=== PATIENT | female | born 1965 | race Caucasian/White ===

== ENCOUNTER 2020-01-29 06:32 | Emergency (ER) | payer OTHER ==
--- NOTE | 2020-01-29 07:14 | ERPHSYRPT ---
- History of Present Illness Source: patient Exam Limitations: no limitations Hx Tetanus, Diphtheria Vaccination/Date Given: Yes Hx Influenza Vaccination/Date Given: Yes Hx Pneumococcal Vaccination/Date Given: No <DIANNA ANAND - Last Filed: 01/29/20 07:30> <WILDER OKEEFE - Last Filed: 01/29/20 12:10> - History of Present Illness Time Seen by Provider: 01/29/20 06:50 Physician History: For the past 70 minutes pt has had decreased sensation of her right upper & lower extremities and right facial cheek. Pt denies chest pain, shortness of air, fever, nausea, vomiting. (DIANNA ANAND) Allergies/Adverse Reactions: Penicillins Allergy (Mild, Verified 01/29/20 06:33) Hives - Review of Systems Constitutional: No Fever Respiratory: No Dyspnea Cardiac: No Chest Pain Abdominal/Gastrointestinal: No Nausea, No Vomiting Neurological: Sensory Changes (decreased sensation of right upper & lower extremities & right facial cheek for the past 70 minutes.) All Other Systems: Reviewed and Negative <DIANNA ANAND - Last Filed: 01/29/20 07:30> - Past Medical History Pertinent Past Medical History: Yes Cardiac History: Hypertension - Past Surgical History Past Surgical History: Yes Other Surgical History: t/a - Social History Smoking Status: Current every day smoker How long have you smoked: YRS Exposure to second hand smoke: Yes Drug Use: none Patient Lives Alone: No <DIANNA ANAND - Last Filed: 01/29/20 07:30> - Anisa Coma Scale Best Eye Response (Anisa): (4) open spontaneously Best Verbal Response (Anisa): (5) oriented Best Motor Response (Anisa): (6) obeys commands Anisa Total: 15 - Physical Exam General Appearance: alert Eye Exam: bilateral eye: PERRL, EOMI Ears, Nose, Throat Exam: TMs normal, pharyngeal erythema (mild) Neck Exam: normal inspection Respiratory: wheezing (mild diffuse expiratory wheezing) Cardiovascular: normal heart sounds Gastrointestinal: normal bowel sounds Back Exam: other (fair rom) Extremity Exam: normal range of motion Peripheral Pulses: dorsalis-pedis (R): 2+, dorsalis-pedis (L): 2+ Mental Status: alert, oriented x 3, 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 Exam: normal hearing, normal speech, PERRL, tongue midline Motor/Sensory: no motor deficit, negative Babinski's sign, No no sensory deficit (decreased sensation of right hand & right foot & right facial cheek.) Skin Exam: warm, dry SpO2 Interpretation: normal SpO2: 98 O2 Delivery: Room Air <DIANNA ANAND - Last Filed: 01/29/20 07:30> - Nursing Vital Signs Nursing Vital Signs: Initial Vital Signs Temperature 97.8 F 01/29/20 06:32 Pulse Rate 103 H 01/29/20 06:32 Respiratory Rate 18 01/29/20 06:32 Blood Pressure 210/128 01/29/20 06:32 O2 Sat by Pulse Oximetry 98 01/29/20 06:32 Pain Scale Pain Intensity 0 - Course EKG Interpreted by Me: RATE (90), Sinus Rhythm, Left Handley Deviation, NORMAL INTERVALS, Other (LAFB) <DIANNA ANAND - Last Filed: 01/29/20 07:30> Ordered Tests: Active Orders 24 hr Category Date Time Status EKG-ER Only STAT Care 01/29/20 07:17 Active IV Insertion STAT Care 01/29/20 07:17 Active CHEST 1 VIEW (PORTABLE) Stat Exams 01/29/20 07:18 Taken CHEST 1 VIEW (PORTABLE) Stat Exams 01/29/20 11:[address] ANGIOGRAPHY NECK [CT] Stat Exams 01/29/20 09:04 Taken CTA HEAD W AND/OR WO CONTRAST [CT] Stat Exams 01/29/20 09:04 Taken HEAD WITHOUT CONTRAST [CT] Stat Exams 01/29/20 07:04 Taken CBC W DIFF Stat Lab 01/29/20 07:40 Completed CMP Stat Lab 01/29/20 07:40 Completed MAGNESIUM Stat Lab 01/29/20 07:40 Completed [place] Screen Stat Lab 01/29/20 07:40 Completed TROPONIN Q3H Lab 01/29/20 07:40 Completed TROPONIN Q3H Lab 01/29/20 10:45 Completed TROPONIN Q3H Lab 01/29/20 13:30 Ordered TROPONIN Q3H Lab 01/29/20 16:30 Ordered TROPONIN Q3H Lab 01/29/20 19:30 Ordered Medication Summary Generic Name Dose Route Start Last Admin Trade Name Freq PRN Reason Stop Dose Admin Sodium Chloride 1,000 mls @ 100 mls/hr 01/29/20 07:30 01/29/20 08:12 Sodium Chloride 0.9% 1000 Ml IV 02/28/20 07:29 100 mls/hr .Q10H AYO Administration Discontinued Medications Generic Name Dose Route Start Last Admin Trade Name All PRN Reason Stop Dose Admin Aspirin 81 mg 01/29/20 09:04 01/29/20 09:21 Baby Aspirin 81 Mg Chew PO 01/29/20 09:05 81 mg STAT ONE Administration Aspirin Confirm 01/29/20 09:17 Baby Aspirin 81 Mg Chew Administered 01/29/20 09:18 Dose 81 mg .ROUTE .STK-MED ONE Aspirin 243 mg 01/29/20 11:34 01/29/20 11:38 Baby Aspirin 81 Mg Chew PO 01/29/20 11:35 243 mg STAT ONE Administration Clopidogrel Bisulfate 300 mg 01/29/20 09:04 01/29/20 09:19 Plavix 75 Mg Tablet PO 01/29/20 09:05 300 mg STAT ONE Administration Clopidogrel Bisulfate Confirm 01/29/20 09:17 Plavix 75 Mg Tablet Administered 01/29/20 09:18 Dose 300 mg .ROUTE .STK-MED ONE Nitroglycerin 0.4 mg 01/29/20 07:23 01/29/20 08:11 Nitrostat 0.4 Mg (Ed) SL 01/29/20 07:24 0.4 mg STAT ONE Administration Lab/Rad Data: Laboratory Result Diagrams 01/29/20 07:40 01/29/20 07:40 Laboratory Results 01/29/20 01/29/20 01/29/20 Range/Units 10:45 07:40 07:40 WBC (4.0-10.5) K/mm3 RBC (4.1-5.4) M/mm3 Hgb (12.0-16.0) gm/dl Hct (35-47) % MCV (78-100) fl MCH (26-32) pg MCHC (32-36) g/dl RDW (11.5-14.0) % Plt Count (150-450) K/mm3 MPV (7.5-11.0) fl Gran % (36.0-66.0) % Eos # (Auto) (0-0.5) Absolute Lymphs (auto) (1.0-4.6) Absolute Monos (auto) (0.0-1.3) Lymphocytes % (24.0-44.0) % Monocytes % (0.0-12.0) % Eosinophils % (0.00-5.0) % Basophils % (0.0-0.4) % Absolute Granulocytes (1.4-6.9) Basophils # (0-0.4) Sodium (137-145) mmol/L Potassium (3.5-5.1) mmol/L Chloride (98-107) mmol/L Carbon Dioxide (22-30) mmol/L Anion Gap (5-15) MEQ/L BUN (7-17) mg/dL Creatinine (0.52-1.04) mg/dL Estimated GFR ML/MIN Glucose (74-106) mg/dL Calcium (8.4-10.2) mg/dL Magnesium (1.6-2.3) mg/dL Total Bilirubin (0.2-1.3) mg/dL AST (14-36) U/L ALT (0-35) U/L Alkaline Phosphatase (38-126) U/L Troponin I < 0.012 < 0.012 (0.000-0.034) ng/mL Serum Total Protein (6.3-8.2) g/dL Albumin (3.5-5.0) g/dL Monoscreen NEGATIVE (Negative) Group A Strep Antibody (NEGATIVE) 01/29/20 01/29/20 01/29/20 Range/Units 07:40 07:40 07:40 WBC 8.1 (4.0-10.5) K/mm3 RBC 5.52 H (4.1-5.4) M/mm3 Hgb 16.8 H (12.0-16.0) gm/dl Hct 51.0 H (35-47) % MCV 92.4 (78-100) fl MCH 30.4 (26-32) pg MCHC 32.9 (32-36) g/dl RDW 14.3 H (11.5-14.0) % Plt Count 196 (150-450) K/mm3 MPV 10.7 (7.5-11.0) fl Gran % 65.4 (36.0-66.0) % Eos # (Auto) 0.29 (0-0.5) Absolute Lymphs (auto) 2.01 (1.0-4.6) Absolute Monos (auto) 0.45 (0.0-1.3) Lymphocytes % 24.8 (24.0-44.0) % Monocytes % 5.6 (0.0-12.0) % Eosinophils % 3.6 (0.00-5.0) % Basophils % 0.6 (0.0-0.4) % Absolute Granulocytes 5.30 (1.4-6.9) Basophils # 0.05 (0-0.4) Sodium 137 (137-145) mmol/L Potassium 4.2 (3.5-5.1) mmol/L Chloride 106 (98-107) mmol/L Carbon Dioxide 27 (22-30) mmol/L Anion Gap 9.1 (5-15) MEQ/L BUN 15 (7-17) mg/dL Creatinine 0.71 (0.52-1.04) mg/dL Estimated GFR > 60.0 ML/MIN Glucose 140 H (74-106) mg/dL Calcium 9.0 (8.4-10.2) mg/dL Magnesium 2.2 (1.6-2.3) mg/dL Total Bilirubin 0.60 (0.2-1.3) mg/dL AST 25 (14-36) U/L ALT 31 (0-35) U/L Alkaline Phosphatase 87 (38-126) U/L Troponin I (0.000-0.034) ng/mL Serum Total Protein 7.2 (6.3-8.2) g/dL Albumin 4.2 (3.5-5.0) g/dL Monoscreen (Negative) Group A Strep Antibody NOT DETECTED (NEGATIVE) - Progress Progress: unchanged, re-examined Discussed with : Other Counseled pt/family regarding: lab results, diagnosis, rad results <WILDER OKEEFE - Last Filed: 01/29/20 12:10> - Progress Progress Note: 01/29/20 11:40 55 years old is checked out to me at shift change from Dr. Anand with pending neuro evaluation. Patient presented with almost 1-1/2-hour history of right- sided numbness with minimal weakness/difficulty ambulation. On my exam I did not appreciate any obvious motor weakness but does have some sensory loss on the right. CT head is negative, EKG did not show any arrhythmias. Grossly unremarkable chemistries. Specialist research contracts supervisor tele neuro consult recommended aspirin and Plavix as patient is not a candidate for TPA. Recommended obtaining CTA head neck which are negative. Patient is recommended admission for further work-up, patient does not want to stay here and wants to go to [facility]. I have called [facility] transfer line . 01/29/20 11:54 I have discussed with [facility] neuro hospitalist Dr. Rashad Herring, are reviewed patient presentation, objective findings, work-up, recommended discussing with the hospitalist and will let us know about status of acceptance. 01/29/20 12:10 I have discussed with Dr. Ramon hospitalist [facility] and patient is accepted for transfer. (WILDER OKEEFE) <DIANNA ANAND - Last Filed: 01/29/20 07:30> - Departure Departure Disposition: Transfer Critical Care Time: No <WILDER OKEEFE - Last Filed: 01/29/20 12:10> - Departure Clinical Impression: Stroke Qualifiers: CVA mechanism: unspecified Qualified Code(s): I63.9 - Cerebral infarction, unspecified Condition: Stable [facility] -
[2020-01-29] MEDS ORDERED: Nitrostat 0.4 MG (ED) SL ONE (07:23)
[2020-01-29] MEDS ORDERED: Sodium Chloride 0.9% 1000 ML 1,000 ML IV SCH (07:30)
[2020-01-29 07:52] LABS: BASOPHIL % 0.6 % (0.0-0.4); Basophil (Absolute #) 0.05 (0-0.4); Eosinophil % 3.6 % (0.00-5.0); Eosinophil (Absolute #) 0.29 (0-0.5); Hemoglobin 16.8 gm/dl (12.0-16.0); Lymphocyte (Absolute #) 2.01 (1.0-4.6); Lymphocytes % 24.8 % (24.0-44.0); Mean Cell Volume 92.4 fl (78-100); Mean Corpuscular Hemoglobin 30.4 pg (26-32); Mean Corpuscular Hgb Concent. 32.9 g/dl (32-36); Mean Platelet Volume 10.7 fl (7.5-11.0); Monocyte (Absolute #) 0.45 (0.0-1.3); Monocytes % 5.6 % (0.0-12.0); Neutrophil % 65.4 % (36.0-66.0); Platelet Count 196 K/mm3 (150-450); Red Blood Count 5.52 M/mm3 (4.1-5.4); Red Cell Distribution Width 14.3 % (11.5-14.0); White Blood Count 8.1 K/mm3 (4.0-10.5)
[2020-01-29 08:04] LABS: ALBUMIN 4.2 g/dL (3.5-5.0); ALKALINE PHOSPHATASE 87 U/L (38-126); ANION GAP 9.1 MEQ/L (5-15); BLOOD UREA NITROGEN 15 mg/dL (7-17); CHLORIDE 106 mmol/L (98-107); Carbon Dioxide 27 mmol/L (22-30); Creatinine 1 0.71 mg/dL (0.52-1.04); EST GLOMERULAR FILTRATION RATE > 60.0 ML/MIN; Glucose 140 mg/dL (74-106); MAGNESIUM 2.2 mg/dL (1.6-2.3); Potassium 4.2 mmol/L (3.5-5.1); SGOT/AST 25 U/L (14-36); SGPT/ALT 31 U/L (0-35); SODIUM 137 mmol/L (137-145); Total Protein 7.2 g/dL (6.3-8.2)
[2020-01-29] MEDS ORDERED: Sodium Chloride 0.9% 1000 ML 1,000 ML ONE (08:06)
[2020-01-29] MEDS ORDERED: BABY ASPIRIN 81 MG CHEW PO ONE ×2 (09:04→11:34)
[2020-01-29] MEDS ORDERED: PLAVIX 75 MG Tablet PO ONE (09:04)
[2020-01-29] MEDS ORDERED: BABY ASPIRIN 81 MG CHEW ONE (09:17)
[2020-01-29] MEDS ORDERED: PLAVIX 75 MG Tablet ONE (09:17)
[2020-01-29 11:23] VITALS: PULSE 80
[2020-01-29 12:16] VITALS: BP 180/115; O2SAT 95
[2020-01-29] MEDS ORDERED: APRESOLINE 20 MG/ML INJ ONE (13:07)
--- NOTE | 2020-01-29 19:34 | XRAY ---
Indication: Right-sided weakness and tingling. Multiple contiguous axial images obtained through the head without contrast. Comparison: None Age-appropriate global atrophy and minimal periventricular degenerative micro-ischemia bilaterally. No acute intracranial hemorrhage, abnormal extra-axial fluid collection, or mass effect. Fourth ventricle is midline without hydrocephalus. Garcia-white matter differentiation preserved. Bony calvarium intact. Visualized greatest sinuses and mastoid air cells are clear. Impression: Atrophy and degenerative micro-ischemia within normal limits for patient's age. No acute intracranial abnormalities. Comment: Preliminary interpretation was made by [facility]. No critical discrepancy.
--- NOTE | 2020-01-29 19:39 | XRAY ---
Indication: Right sided weakness and tingling. Comparison: None Portable chest demonstrates normal heart, lungs, and bony thorax with incidental hilar calcified nodes.
--- NOTE | 2020-01-29 19:40 | XRAY ---
Indication: Right-sided weakness and tingling. Conventional contrast enhanced CTA neck performed using 100 cc Isovue-370 contrast. Two-dimensional sagittal and coronal reformatted images obtained. Additional 3-dimensional reformatted images obtained using a separate workstation. Comparison: None Aortic arch normal in course and caliber with normal branching right brachiocephalic, left common carotid, and left subclavian arteries. Minimal calcifications of the aortic arch, origin left subclavian artery, and lesser degree origin left common carotid artery without critical stenosis/obstruction. Examination of the right carotid circulation demonstrates widely patent common carotid artery. Mild calcifications at the level of the bulb producing 20-30% stenosis. Remaining internal and external carotid arteries are normal in CTA appearance. Examination of the left carotid circulation demonstrates widely patent common carotid artery. Minimal calcifications at the level of the bulb and proximal internal carotid artery producing less than 20% stenosis. Remaining external carotid artery normal in CTA appearance. Vertebral arteries are bilaterally patent with left slightly larger in caliber. Soft tissues demonstrates a few subcentimeter cervical nodes bilaterally. No pathologic lymphadenopathy. Thyroid gland enhances homogeneously. Supra and infraglottic airway widely patent. Cervical spine intact with mild C5-C7 degenerative changes. Lung apices are clear. Impression: Minimal scattered carotid calcifications bilaterally as detailed. Negative critical stenosis/obstruction. Comment: Preliminary interpretation was made by [facility]. No critical discrepancy.
--- NOTE | 2020-01-29 19:42 | XRAY ---
Indication: Right-sided weakness and tingling. Conventional contrast enhanced CTA head performed using 100 cc Isovue-370 contrast. Two-dimensional sagittal and coronal reformatted images obtained. Additional 3-dimensional reformatted images obtained using a separate workstation. Comparison: None Distal internal carotid arteries are bilaterally symmetric with minimal calcifications parasellar segments. Negative critical stenosis, obstruction, or AV malformation. Normal carotid terminus with normal branching A1 and M1 segments bilaterally. More distal anterior cerebral, middle cerebral, injury communicating, and posterior communicating arteries are normal in CT appearance. Basilar artery is normal in course and caliber with normal branching posterior cerebral and superior cerebellar arteries bilaterally. Remaining whole brain is negative for abnormal enhancing intra-or extra-axial mass. CTA neck reported separately. Impression: Minimal internal carotid artery calcifications bilaterally without critical stenosis/obstruction. Remaining CTA head is negative. Comment: Preliminary interpretation was made by [facility]. No critical discrepancy.
== END 2020-01-29 13:38 | disposition short-term general hospital (02) ==
LOC: ED 06:32
DX: I63.9 Cerebral infarction, unspecified (principal); R20.8 Other disturbances of skin sensation; Z86.79 Personal history of other diseases of the circulatory system
CPT/HCPCS: 36000; 36415; 70450; 70496; 70498; 71045; 80053; 83735; 84484; 85025; 86308; 87651; 93005; 96360; 99285; J0360; A9270-GY

== ENCOUNTER 2023-11-19 13:04 | Observation (INO) | payer OTHER ==
[2023-11-19] MEDS ORDERED: Sensorcaine 0.25% 10 ML ONE (14:47)
--- NOTE | 2023-11-19 14:54 | PCM.HP ---
History of Present Illness - Chief Complaint Chief Complaint: appendicitis Date: 11/19/23 History of Present Illness: is a 58 year old female with PMHX of TIA Stroke-2021(on Plavix), HTN, Type II DM, polycythemia, and hyperlipidemia. She was direct admitted by LEANNA Blue for acute appendicitis. WBC 20. CT abd/ Pelvis shows; Appendicolith with CT features favoring acute appendicitis. 1 cm indeterminant right lower lobe noncalcified nodule. Chronic findings including arteriosclerotic disease and chronic bony findings. She last ate at yesterday and a sip of water at 10 AM. Antibiotocs and IVF started per GS. She is c/o RUQ, RLQ pain with palpation. Pain increases with coughing and sitting up. Sitting still makes it better. Abd pain started at 4:20 this AM. She denies CP, SOB, N/V/D, fever. - Review of Systems Constitutional: No Fever, No Chills Eyes: No Symptoms Ears, Nose, & Throat: No Symptoms Respiratory: No Cough, No Short Of Breath Cardiac: No Chest Pain, No Edema, No Syncope Abdominal/Gastrointestinal: Abdominal Pain, No Nausea, No Vomiting, No Diarrhea Genitourinary Symptoms: No Dysuria Musculoskeletal: No Back Pain, No Neck Pain Skin: No Rash Neurological: No Dizziness, No Focal Weakness, No Sensory Changes Psychological: No Symptoms Endocrine: No Symptoms Hematologic/Lymphatic: No Symptoms Immunological/Allergic: No Symptoms Medications & Allergies Home Medications: Home Medication List Amlodipine Besylate/Benazepril [Amlodipine-Benazepril 5-10 mg] 1 each PO DAILY 11/19/23 [History Confirmed 11/19/23] Aspirin EC 81 mg [Ecotrin 81 mg] 81 mg PO DAILY 11/19/23 [History Confirmed 11/19/23] Atorvastatin Calcium 40 mg PO DAILY 11/19/23 [History Confirmed 11/19/23] Calcium Carbonate/Vitamin D3 [Calcium 1,000 + D3 Caplet] 1 tablet PO DAILY 11/19/23 [History Confirmed 11/19/23] Clopidogrel Bisulfate [Clopidogrel] 75 mg PO DAILY 11/19/23 [History Confirmed 11/19/23] Metoprolol Succinate 50 mg PO DAILY 11/19/23 [History Confirmed 11/19/23] Multivitamin [Multi-Vitamin Daily] 1 each PO DAILY 11/19/23 [History Confirmed 11/19/23] Oakman-3 Fatty Acids/Fish Oil [Fish Oil 1,000 mg Capsule] 1,000 mg PO DAILY 11/19/23 [History Confirmed 11/19/23] Allergies/Adverse Reactions: Allergies Allergy/AdvReac Type Severity Reaction Status Date / Time Penicillins Allergy Mild Hives Verified 11/19/23 13:16 - Past Medical History Past Medical History: Yes Neurological History: Stroke ENT History: No Pertinent History Cardiac History: Hypertension Respiratory History: No Pertinent History Musculoskelatal History: No Pertinent History GI Medical History: No Pertinent History History: No Pertinent History Pyscho-Social History: No Pertinent History Reproductive Disorders: No Pertinent History Comment: Stroke January 2020 - Past Surgical History Past Surgical History: Yes Neuro Surgical History: No Pertinent History Cardiac History: No Pertinent History Respiratory Surgery: No Pertinent History GI Surgical History: No Pertinent History Genitourinary Surgical Hx: No Pertinent History Musculskeletal Surgical Hx: No Pertinent History Female Surgical History: No Pertinent History Other Surgical History: t/a - Social History Smoking Status: Current every day smoker How long have you smoked: YRS Exposure to second hand smoke: Yes Alcohol: None Drug Use: none - Physical Exam General Appearance: no apparent distress, alert Neurologic Exam: alert, oriented x 3, cooperative, normal mood/affect, nml cerebellar function, nml station & gait, sensation nml, No motor deficits Eye Exam: PERRL/EOMI, eyes nml inspection Ears, Nose, Throat Exam: normal ENT inspection, TMs normal, pharynx normal, moist mucous membranes Neck Exam: normal inspection, non-tender, supple, full range of motion Respiratory Exam: normal breath sounds, lungs clear, No respiratory distress Cardiovascular Exam: regular rate/rhythm, normal heart sounds, normal peripheral pulses Gastrointestinal/Abdomen Exam: soft, normal bowel sounds, tenderness (RUQ, RLQ with palpation), guarding, No mass Back Exam: normal inspection, normal range of motion, No CVA tenderness, No ve rtebral tenderness Extremity Exam: normal inspection, normal range of motion, pelvis stable Skin Exam: normal color, warm, dry, No rash Lymphatic Exam: No adenopathy Assessment/Plan (1) Appendicitis Current Visit: Yes Status: Acute Qualifiers: Appendicitis type: acute appendicitis Assessment & Plan: - GS consult - Antibiotics and IVF per GS - NPO - PT/INR, T&C- pending Code(s): K37 - UNSPECIFIED APPENDICITIS (2) HTN (hypertension) Current Visit: Yes Status: Chronic Assessment & Plan: - Bp stable continue home meds Code(s): I10 - ESSENTIAL (PRIMARY) HYPERTENSION (3) Hyperlipidemia Current Visit: Yes Status: Chronic Assessment & Plan: - continue statin Code(s): E78.5 - HYPERLIPIDEMIA, UNSPECIFIED (4) History of stroke Current Visit: Yes Status: Chronic Assessment & Plan: - Hold Plavix for surgery - no deficits Code(s): Z86.73 - PRSNL HX OF TIA (TIA), AND CEREB INFRC W/O RESID DEFICITS (5) Polycythemia Current Visit: Yes Status: Chronic Assessment & Plan: - chronic - Hgb 16- monitor Code(s): D75.1 - SECONDARY POLYCYTHEMIA (6) BMI 36.0-36.9,adult Current Visit: Yes Status: Acute Assessment & Plan: - advised ADA diet and exercise control VTE:SCD Next of KIN: Andrews Deleon [phone] Code status: Full D/C plan: tomorrow? Code(s): Z68.36 - BODY MASS INDEX [BMI] 36.0-36.9, ADULT
[2023-11-19 15:12] LABS: INR 0.93 (0.8-3.0); PROTIME 10.2 SECONDS (9.4-12.5)
[2023-11-19 15:37] LABS: ABO TYPING A; Antibody Screen NEGATIVE (NEGATIVE); RH TYPING NEGATIVE
[2023-11-19] MEDS: Lactated Ringers 1,000 ML IV SCH (15:40)
[2023-11-19] MEDS: Levofloxacin 500MG/100ML D5W 500 MG/100 ML BAG IV SCH (15:40)
[2023-11-19] MEDS: CLINDAMYCIN-D5W 900 MG/50 ML*** 900 MG/50 ML BAG IV SCH (15:41)
[2023-11-19] MEDS ORDERED: Xylocaine-Mpf 2% 5 Ml Vial ONE (16:02)
[2023-11-19] MEDS ORDERED: DIPRIVAN 200 MG/20 ML IV ONE (16:02)
[2023-11-19] MEDS ORDERED: ROCURONIUM BROMIDE IV ONE (16:02)
[2023-11-19] MEDS ORDERED: BRIDION 200MG/2ML IV ONE (16:02)
[2023-11-19] MEDS ORDERED: TORAdol 30 mg Injection ONE (16:02)
[2023-11-19] MEDS ORDERED: Zofran 4 MG/2 ML VIAL ONE (16:02)
[2023-11-19] MEDS ORDERED: Decadron 4 MG INJ ONE (16:02)
[2023-11-19] MEDS ORDERED: SUBLIMAZE 100 MCG/2 ML ONE (16:02)
[2023-11-19] MEDS ORDERED: OFIRMEV 100 ML IV ONE (16:14)
[2023-11-19] MEDS ORDERED: MORPHINE SULFATE 4 MG INJ IV PRN (18:21)
[2023-11-19] MEDS ORDERED: Zofran 4 MG/2 ML VIAL IV PRN (18:24)
[2023-11-19] MEDS ORDERED: Levofloxacin 500MG/100ML D5W 500 MG/100 ML BAG IV SCH (19:00)
[2023-11-19] MEDS: NORCO 5/325 MG PO PRN (21:16)
[2023-11-19] MEDS: FLAGYL 500 MG IVPB 500 MG/100 ML BAG IV SCH (21:16)
[2023-11-19] MEDS ORDERED: FLAGYL 500 MG IVPB 500 MG/100 ML BAG IV SCH (23:00)
[2023-11-20] MEDS ORDERED: Levofloxacin 500MG/100ML D5W 500 MG/100 ML BAG IV SCH (04:00)
[2023-11-20] MEDS: Levofloxacin 500MG/100ML D5W 500 MG/100 ML BAG IV SCH (04:32)
[2023-11-20 05:45] LABS: Hematocrit 46.3 % (34.1-44.9); Hemoglobin 15.2 g/dL (11.2-15.7); Mean Cell Volume 91.9 fL (79.4-94.8); Mean Corpuscular Hemoglobin 30.2 pg (25.6-32.2); Mean Corpuscular Hgb Concent. 32.8 g/dL (32.2-35.5); Mean Platelet Volume 10.4 fL (9.4-12.3); Platelet Count 193 x10^3/uL (182-369); Red Blood Count 5.04 x10^6/uL (3.93-5.22); Red Cell Distribution Width 13.1 % (11.7-14.4); White Blood Count 16.7 x10^3/uL (3.98-10.04)
[2023-11-20 06:03] LABS: ALBUMIN 4.1 g/dL (3.5-5.0); ANION GAP 14.9 MEQ/L (5-15); BILIRUBIN,TOTAL 0.9 mg/dL (0.2-1.3); Calcium 9.3 mg/dL (8.4-10.2); Creatinine 1 1.01 mg/dL (0.52-1.04); EST GLOMERULAR FILTRATION RATE 64.1 ML/MIN; Potassium 4.3 mmol/L (3.5-5.1); Total Protein 6.8 g/dL (6.3-8.2)
--- NOTE | 2023-11-20 10:08 | HP ---
HISTORY AND PHYSICAL HISTORY OF PRESENT ILLNESS: Patient is a 58-year-old who had some right lower quadrant pain since about 4 a.m. She had persistent pain so she was sent for CT scan, which indicated findings suspicious for acute appendicitis. White count was 20,000 sounds like. Liver function tests unremarkable. PAST MEDICAL HISTORY: She had stroke in the past, been on some Plavix and aspirin apparently. She had elevated hemoglobin A1c but had been on some Ozempic and come down to the 6 range apparently. She has had history of CVA, hypertension, sleep apnea, diabetes, history of some spinal stenosis, and radiculopathy in the past. She has had some skin cancer in the past. PAST SURGICAL HISTORY: Tonsillectomy and adenoidectomy. She denied having prior abdominal surgery in the past. She did have a colonoscopy back in 2018. FAMILY HISTORY: Diabetes, renal insufficiency. SOCIAL HISTORY: She had history of having been a smoker in the past. MEDICATIONS: Previously include amlodipine, aspirin, atorvastatin, calcium carbonate, Centrum, clopidogrel, Krill oil, metoprolol, as well as Ozempic and Protonix, Super D Complex. REVIEW OF SYSTEMS: Twelve systems reviewed. Other systems negative or noncontributory as above and per preadmission questionnaire. She has had hyperlipidemia as well. PHYSICAL EXAMINATION: GENERAL: Height 5 feet 4 inches. No acute distress. HEENT: Sclerae nonicteric. Extraocular movements intact. Oral: Mucous membranes moist. NECK: No JVD. CHEST: Equal excursion, nonlabored breathing. CARDIOVASCULAR: Regular rate and rhythm. ABDOMEN: Soft. Some tenderness in the right upper quadrant. No peritoneal signs. EXTREMITIES: No cyanosis. No significant edema. NEUROLOGIC: Alert and oriented, moving all extremities symmetrically. PSYCHIATRIC: Appropriate mood and affect. IMPRESSION: Acute right lower quadrant pain. CT scan suspicious for appendicitis. History and physical exam, CT findings suggestive for acute appendicitis. The patient will undergo laparoscopic appendectomy, possible open. Risks were explained in detail including bleeding, infection, risk of trocar injury and hernia, risk of bowel or bladder, blood loss, and risk of subsequent intra-abdominal abscess or fistula requiring percutaneous or open drainage at a later date, general risks of anesthesia, DVT, PE, pneumonia, perioperative risk of ileus or obstruction, risk of ongoing infection, possible need for open procedure but not limited to. She understands and accepts the above. We will proceed with laparoscopic appendectomy and possible open when OR time available.
--- NOTE | 2023-11-20 10:10 | OP ---
SURGERY DATE/TIME: 11/19/2023 2836 - 1610 PREOPERATIVE DIAGNOSIS: Acute right lower quadrant pain, suspicious for acute appendicitis. POSTOPERATIVE DIAGNOSIS: Acute suppurative ischemic appendicitis. PROCEDURE: Laparoscopic appendectomy. SURGEON: Rashad Tomlinson MD LAMP WIRER: Toma Treviño, Medical Student 3. ESTIMATED BLOOD LOSS: Minimal. INDICATIONS: As noted above. Risks and benefits explained in detail, but not limited to. Consent was obtained. DESCRIPTION OF PROCEDURE AND FINDINGS: The patient was taken to the operating room. General anesthesia was induced, prepped and draped in the usual sterile fashion. After official time-out, no disagreement in planned procedure, transverse incision made in the supraumbilical area. Fascia grasped and pulled up. Veress needle was inserted. Tested with saline. Pneumoperitoneum accomplished insufflating to an open pressure of 0 to 15. A 5 mm bladeless port and camera inserted without difficulty followed by lower midline 5 mm port and a right upper quadrant 12 mm port site. The appendix was noted to be acutely suppurative with some ischemia so will definitely want an appendectomy. LigaSure device was carefully used to create a at the base of the appendix. The mesoappendix was taken down, ligated with the use of the LigaSure device. The appendix was stapled at its base at the cecum and a viable portion with the EndoGIA stapler. Good hemostasis was noted. The appendix was placed in the provided sack, pulled through, slightly enlarging the 12 site with a clamp and the appendix and bag pulled free and passed off. This fascial defect was closed with puncture closure device with #1 Vicryl. Copious amount of irrigation accomplished in the right lower quadrant, pelvis and lateral lobe of the liver irrigated clear. Staple line was intact on the cecum. Mesoappendix was dry and having been sealed by the LigaSure device. At this point, pneumoperitoneum was decompressed. Again, the 12 fascial defect with puncture closure device and closed with #1 Vicryl. The wound was irrigated out. Skin incisions closed with 4-0 Vicryl. Marcaine 0.25% local injected along each skin incision and fascial defect. Patient tolerated the procedure well. There were no immediate complications. We will keep her on IV antibiotics overnight and we will see how she is doing tomorrow. Will possibly discharge in 1 day or 2 pending her white count.
--- NOTE | 2023-11-20 12:01 | PCM.DS ---
Discharge Summary Date of Admission: 11/19/23 13:04 Date of Discharge: 11/20/23 Admitting Physician: ERMA FLANAGAN MD Primary Care Provider: TASH AVENDAÑO [place] Allergies Allergies Penicillins Allergy (Mild, Verified 11/19/23 13:16) [facility] Summary - Hospital Course Hospital Course: 11/19/23 is a 58 year old female with PMHX of TIA Stroke-2021(on Plavix), HTN, Type II DM, polycythemia, and hyperlipidemia. She was direct admitted by LEANNA Blue for acute appendicitis. WBC 20. CT abd/ Pelvis shows; Appendicolith with CT features favoring acute appendicitis. 1 cm indeterminant right lower lobe noncalcified nodule. Chronic findings including arteriosclerotic disease and chronic bony findings. She last ate at yesterday and a sip of water at 10 AM. Antibiotocs and IVF started per GS. She is c/o RUQ, RLQ pain with palpation. Pain increases with coughing and sitting up. Sitting still makes it better. Abd pain started at 4:20 this AM. She denies CP, SOB, N/V/D, fever. 11/20/23 Pt sitting up in bed. She is POD #1 lap appy. She is having some RUQ pain with bending over. Post op wounds covered and no erythema. She feels she is ready to d/c. Per surgery ok to d/c. Pt to f/u OP with GS. Pt denies CP, SOB, N/V/D. - Vitals & Intake/Output Vital Signs: Vital Signs Temperature 97.8 F 11/20/23 08:00 Pulse Rate 64 11/20/23 08:00 Respiratory Rate 18 11/20/23 08:00 Blood Pressure 102/60 11/20/23 08:00 O2 Sat by Pulse Oximetry 94 L 11/20/23 08:00 Intake & Output: Intake & Output 11/17/23 11/18/23 11/19/23 11/20/23 11:59 11:59 11:59 11:59 Intake Total 659 Balance 659 Weight 95.37 kg - Lab Result Diagrams: 11/20/23 05:35 11/20/23 05:35 Lab Results-Last 24 Hrs: Lab Results-Last 24 Hours 11/19/23 11/19/23 11/20/23 Range/Units 14:41 14:41 05:35 WBC 16.7 H (3.98-10.04) x10^3/uL RBC 5.04 (3.93-5.22) x10^6/uL Hgb 15.2 (11.2-15.7) g/dL Hct 46.3 H (34.1-44.9) % MCV 91.9 (79.4-94.8) fL MCH 30.2 (25.6-32.2) pg MCHC 32.8 (32.2-35.5) g/dL RDW 13.1 (11.7-14.4) % Plt Count 193 (182-369) x10^3/uL MPV 10.4 (9.4-12.3) fL PT 10.2 (9.4-12.5) SECONDS INR 0.93 (0.8-3.0) Sodium (135-145) mmol/L Potassium (3.5-5.1) mmol/L Chloride (98-107) mmol/L Carbon Dioxide (22-30) mmol/L Anion Gap (5-15) MEQ/L BUN (7-17) mg/dL Creatinine (0.52-1.04) mg/dL Estimated GFR ML/MIN Glucose (74-106) mg/dL Calcium (8.4-10.2) mg/dL Total Bilirubin (0.2-1.3) mg/dL AST (14-36) U/L ALT (0-35) U/L Alkaline Phosphatase (38-126) U/L Serum Total Protein (6.3-8.2) g/dL Albumin (3.5-5.0) g/dL ABO Group A Rh Factor NEGATIVE Antibody Screen NEGATIVE (NEGATIVE) 11/20/23 Range/Units 05:35 WBC (3.98-10.04) x10^3/uL RBC (3.93-5.22) x10^6/uL Hgb (11.2-15.7) g/dL Hct (34.1-44.9) % MCV (79.4-94.8) fL MCH (25.6-32.2) pg MCHC (32.2-35.5) g/dL RDW (11.7-14.4) % Plt Count (182-369) x10^3/uL MPV (9.4-12.3) fL PT (9.4-12.5) SECONDS INR (0.8-3.0) Sodium 136 (135-145) mmol/L Potassium 4.3 (3.5-5.1) mmol/L Chloride 99 (98-107) mmol/L Carbon Dioxide 27 (22-30) mmol/L Anion Gap 14.9 (5-15) MEQ/L BUN 18 H (7-17) mg/dL Creatinine 1.01 (0.52-1.04) mg/dL Estimated GFR 64.1 ML/MIN Glucose 150 H (74-106) mg/dL Calcium 9.3 (8.4-10.2) mg/dL Total Bilirubin 0.90 (0.2-1.3) mg/dL AST 20 (14-36) U/L ALT 27 (0-35) U/L Alkaline Phosphatase 58 (38-126) U/L Serum Total Protein 6.8 (6.3-8.2) g/dL Albumin 4.1 (3.5-5.0) g/dL ABO Group Rh Factor Antibody Screen (NEGATIVE) Micro Results-Entire Visit: Accuchecks Date 11/19/23 - Procedures and Test Procedures and Tests throughout Hospitalization: Therapy Orders & Screens 11/19/23 16:29 EKG ROUTINE Comment: Diagnosis: appendicitis Discharge Exam General Appearance: no apparent distress, alert, obese Neurologic Exam: alert, oriented x 3, cooperative, normal mood/affect, nml cer ebellar function, sensation nml, No motor deficits Eye Exam: PERRL, EOMI, eyes nml inspection Ears, Nose, Throat Exam: normal ENT inspection, pharynx normal, moist mucous membranes Neck Exam: normal inspection, non-tender, supple, full range of motion Respiratory Exam: normal breath sounds, lungs clear, No respiratory distress Cardiovascular Exam: regular rate/rhythm, normal heart sounds Gastrointestinal/Abdomen Exam: soft, tenderness (RUQ), No mass Pelvic Exam: deferred Rectal Exam: deferred Back Exam: normal inspection, normal range of motion, No CVA tenderness, No v ertebral tenderness Extremity Exam: normal inspection, normal range of motion Skin Exam: normal color, warm, dry, other (insisions from lap appy - covered) Final Diagnosis/Problem List - Final Discharge Diagnosis/Problem (1) Appendicitis Current Visit: Yes Status: Acute Code(s): K37 - UNSPECIFIED APPENDICITIS (2) HTN (hypertension) Current Visit: Yes Status: Chronic Code(s): I10 - ESSENTIAL (PRIMARY) HYPERTENSION (3) Hyperlipidemia Current Visit: Yes Status: Chronic Code(s): E78.5 - HYPERLIPIDEMIA, UNSPECIFIED (4) History of stroke Current Visit: Yes Status: Chronic Code(s): Z86.73 - PRSNL HX OF TIA (TIA), AND CEREB INFRC W/O RESID DEFICITS (5) Polycythemia Current Visit: Yes Status: Chronic Code(s): D75.1 - SECONDARY POLYCYTHEMIA (6) BMI 36.0-36.9,adult Current Visit: Yes Status: Acute Assessment & Plan: 1) Appendicitis Current Visit: Yes Status: Acute Qualifiers: Appendicitis type: acute appendicitis Assessment & Plan: - GS consult - Antibiotics and IVF per GS - NPO - PT/INR, T&C- pending - narcotic pain meds 11/19 - POD #1 lap appy - ok to d/c per GS - OP Rx's wrote by GS Code(s): K37 - UNSPECIFIED APPENDICITIS (2) HTN (hypertension) Current Visit: Yes Status: Chronic Assessment & Plan: - Bp stable continue home meds Code(s): I10 - ESSENTIAL (PRIMARY) HYPERTENSION (3) Hyperlipidemia Current Visit: Yes Status: Chronic Assessment & Plan: - continue statin Code(s): E78.5 - HYPERLIPIDEMIA, UNSPECIFIED (4) History of stroke Current Visit: Yes Status: Chronic Assessment & Plan: - Hold Plavix for surgery - no deficits Code(s): Z86.73 - PRSNL HX OF TIA (TIA), AND CEREB INFRC W/O RESID DEFICITS (5) Polycythemia Current Visit: Yes Status: Chronic Assessment & Plan: - chronic - Hgb 16- monitor 11/19 - Hgb 15.2 Code(s): D75.1 - SECONDARY POLYCYTHEMIA (6) BMI 36.0-36.9,adult Current Visit: Yes Status: Acute Assessment & Plan: - advised ADA diet and exercise control Code(s): Z68.36 - BODY MASS INDEX [BMI] 36.0-36.9, ADULT - Discharge Discharge Date: 11/20/23 Disposition: Home, Self-Care Condition: Stable Prescriptions: Continue Marina-3 Fatty Acids/Fish Oil [Fish Oil 1,000 mg Capsule] 1,000 mg PO DAILY Amlodipine Besylate/Benazepril [Amlodipine-Benazepril 5-10 mg] 1 each PO DAILY Clopidogrel Bisulfate [Clopidogrel] 75 mg PO DAILY Atorvastatin Calcium 40 mg PO DAILY Metoprolol Succinate 50 mg PO DAILY Aspirin EC 81 mg [Ecotrin 81 mg] 81 mg PO DAILY Multivitamin [Multi-Vitamin Daily] 1 each PO DAILY Calcium Carbonate/Vitamin D3 [Calcium 1,000 + D3 Caplet] 1 tablet PO DAILY Instructions: Appendectomy - Discharge instructions Additional Instructions: May return to work after seen by physician at F/U appointment on 11/25/23. Do not lift more than 10-15lbs until after F/U appointment on 11/25/23. Take prescribed antibiotics and pain medications as prescribed. Follow up with: TASH AVENDAÑO MD [Primary Care Provider] - 12/02/23 10:45 am NAVEED JOE [COURTESY STAFF] - 11/25/23 10:30 am ([facility]) Forms: Work/School Release Form
[2023-11-20 13:14] VITALS: BP 115/62; PULSE 73; RESP 20; TEMP 97.3; O2SAT 93
[2023-11-21] MEDS ORDERED: Levofloxacin 500MG/100ML D5W 500 MG/100 ML BAG IV SCH (06:00)
== END 2023-11-20 12:43 | disposition home or self-care (01) ==
LOC: MED SURG 13:04
PROVIDERS: ADMIT Internal Medicine; ATTEND Internal Medicine
DX: K37 Unspecified appendicitis (principal); I10 Essential (primary) hypertension; E11.9 Type 2 diabetes mellitus without complications; E78.5 Hyperlipidemia, unspecified; D75.1 Secondary polycythemia; Z86.73 Personal history of transient ischemic attack (TIA), and cerebral infarction without residual deficits; Z79.01 Long term (current) use of anticoagulants; Z79.899 Other long term (current) drug therapy; Z68.36 Body mass index [BMI] 36.0-36.9, adult
CPT/HCPCS: 36415; 44970; 80053; 85027; 85610; 86850; 86900; 86901; 93005; Q3014; G0378; J1100; J1885; J1956; J2405; J2704; J3010; A9270-GY

== ENCOUNTER 2023-12-28 09:45 | Day surgery (SDC) | payer OTHER ==
--- NOTE | 2023-12-27 18:27 | HP ---
HISTORY AND PHYSICAL HISTORY OF PRESENT ILLNESS: A 58-year-old who had undergone lap appendectomy for appendicitis in the recent past. Now she is here for a different problem. Her last colonoscopy was probably over 6 years ago. She needs followup screening colonoscopy. No bloody stools. No change in bowel habits. No new pain. Family history negative for colon cancer. PAST MEDICAL HISTORY: She has had some hypertension, diabetes, hyperlipidemia, history of strokes. She is a little bit overweight. PAST SURGICAL HISTORY: She has had appendectomy and tonsillectomy in the past. She had colonoscopy in the past. FAMILY HISTORY: Renal failure, diabetes, heart disease, lung cancer and stroke in the family. SOCIAL HISTORY: Every day smoker. Denies alcohol abuse. MEDICATIONS: Ozempic, amlodipine, atorvastatin, metoprolol, aspirin and Plavix. ALLERGIES: Penicillin. REVIEW OF SYSTEMS: Twelve systems reviewed. No chest pain or palpitations. She was doing well from a recent appendectomy. Other systems negative or noncontributory as noted above and per preadmission assessment. PHYSICAL EXAMINATION: GENERAL: Height 5 feet 6 inches. BMI 32.9. No acute distress. HEENT: Sclerae nonicteric. NECK: No JVD. CHEST: Equal excursion, nonlabored breathing. CARDIOVASCULAR: Regular rate and rhythm. ABDOMEN: Soft. Incisions are okay. Bruising is resolving. Healing ridge. Right upper quadrant incision looks fine. EXTREMITIES: No cyanosis or edema. NEUROLOGIC: Alert and oriented, moving all extremities symmetrically. PSYCHIATRIC: Appropriate mood and affect. SKIN: Clean and dry. RECTAL: Deferred until time of endoscopy exam. IMPRESSION: Need for followup screening colonoscopy, I feel patient is a candidate. Shown the risk sheet and explained the procedure in detail including bleeding, infection, risk of bowel injury or perforation, possible risk of misdiagnosis or nondiagnosis, incomplete exam possibly requiring barium enema, risk of missed or nondiagnosis, possible need for other procedure or referrals, risk of sedation or anesthesia, risk of bowel prep. She understands and agreed with plan to proceed. We will proceed with outpatient followup screening colonoscopy under MAC anesthesia. Otherwise, continue medications for her hypertension, hyperlipidemia and diabetes. Hold blood thinners preop.
[2023-12-28] MEDS ORDERED: Lactated Ringers 1,000 ML IV ONE (10:07)
[2023-12-28 10:18] VITALS: RESP 16
[2023-12-28] MEDS ORDERED: DIPRIVAN 200 MG/20 ML IV ONE ×2 (12:40→12:48)
[2023-12-28] MEDS: Lactated Ringers 1,000 ML IV SCH (13:04)
[2023-12-28 13:41] VITALS: BP 140/96; PULSE 86; TEMP 97.4; O2SAT 97
--- NOTE | 2023-12-29 09:38 | OP ---
SURGERY DATE/TIME: 12/28/2023 [id number] PREOPERATIVE DIAGNOSIS: Need for screening colonoscopy. POSTOPERATIVE DIAGNOSES: 1) Fair prep. 2) Mild diverticulosis, left colon. 3) Polyps. 4) Withdrawal time was approximately 9 minutes. 5) ASA class 3. PROCEDURES: 1) Colonoscopy to the cecum. 2) Hot biopsy, piecemeal polypectomy, sigmoid colon polyp. 3) Hot biopsy polypectomy, cecal polyp x2, transverse colon polyp x1. SURGEON: Rashad Tomlinson MD. ANESTHESIA: MAC. ESTIMATED BLOOD LOSS: Minimal. INDICATIONS: As noted above, consent obtained. DESCRIPTION OF PROCEDURE AND FINDINGS: The patient was taken to the operating room. After official time-out and no disagreement with planned procedure, MAC anesthesia was induced. Digital rectal exam did not reveal any rectal masses. Videocolonoscope was inserted and passed up through the somewhat tortuous sigmoid, descending, transverse, and ascending colon. With external pressure, scope was able to be passed down to the cecum. Appendiceal orifice and valve were well visualized. There were 2 small polyps in the cecum and removed with hot biopsy polypectomy. Good hemostasis was noted. Appendiceal orifice and valve area were photo documented. Scope was then carefully withdrawn over the next 9 minutes. A small early polyp versus hyperplastic lesion in the transverse colon was removed with hot biopsy polypectomy. Good hemostasis was noted. The scope was pulled back around to the proximal sigmoid colon where a 3 to 3.5 mm polyp was removed in hot biopsy piecemeal fashion. This appeared to be more adenomatous than the other polyps. Given the piecemeal polypectomy, we will check for final path, but may need to do the shorter term followup colonoscopy, possibly in a couple of years doing the piecemeal polypectomy. She had a few diverticula in the left colon. No signs of any large polyps, masses, or obstructing lesions. The prep was only fair. Some scattered liquidy semi-solid stool throughout the colon. There was no family member out in the waiting area.
== END 2023-12-28 13:41 | disposition home or self-care (01) ==
LOC: SDC 09:45
PROVIDERS: ATTEND Surgery
DX: Z12.11 Encounter for screening for malignant neoplasm of colon (principal); E11.9 Type 2 diabetes mellitus without complications; K57.30 Diverticulosis of large intestine without perforation or abscess without bleeding; D12.0 Benign neoplasm of cecum; D12.5 Benign neoplasm of sigmoid colon; D12.3 Benign neoplasm of transverse colon
CPT/HCPCS: 82947; J2704